=== PATIENT | female | born 1985 | race Caucasian/White ===

== ENCOUNTER 2016-08-11 20:52 | Emergency (ER) | payer OTHER ==
[~2016-08-11] VITALS: Ht 172.7 cm; Wt 93.9 kg
[2016-08-11 21:12] VITALS: BP 130/81
--- NOTE | 2016-08-11 21:34 | NUR ---
PT TAKEN TO BED 1
--- NOTE | 2016-08-11 21:58 | NUR ---
Dr. Navas evaluating patient at bedside.
--- NOTE | 2016-08-11 22:03 | NUR ---
PATIENT PRESENTS TO ED WITH ROBINS, N/V [id number] . PT STATES SHE HAS A HX OF BRAIN TUMOR AND BRAIN HEMMORHAGE 1.5YEARS AGO . DENIES DIARRHEA; SKIN IS PINK/WARM/DRY; AAOX4 WITH EVEN AND STEADY GAIT; LUNGS CLEAR BL; HR EVEN AND REGULAR; PT DENIES ANY FEVER, CP, SOB, OR COUGH AT THIS TIME; PATIENT STATES PAIN OF 6/10 AT THIS TIME; VSS; PATIENT POSITIONED FOR COMFORT; HOB ELEVATED; BEDRAILS UP X2; BED DOWN. ER MD MADE AWARE OF PT STATUS.
[2016-08-11 23:47] VITALS: BP 130/81
--- NOTE | 2016-08-11 23:48 | NUR ---
Patient does not wish to proceed with medical care recommended by DR. WHITLEY. Patient given information related to possible complications, up to and including , which could occur as a result of leaving hospital at this time. Patient verbalizes understanding of risks involved leaving against medical advice. Patient has signed AMA form.
== END 2016-08-11 23:48 | disposition left against medical advice (07) ==
LOC: MED 20:52
DX: R51 Headache (principal); R11.2 Nausea with vomiting, unspecified; R42 Dizziness and giddiness; D18.01 Hemangioma of skin and subcutaneous tissue

== ENCOUNTER 2017-10-15 02:55 | Emergency (ER) | payer OTHER ==
[~2017-10-15] VITALS: Ht 170.2 cm; Wt 81.6 kg
[2017-10-15 03:06] VITALS: BP 157/100
--- NOTE | 2017-10-15 03:13 | NUR ---
PT TAKEN TO BED 4
--- NOTE | 2017-10-15 03:20 | NUR ---
31 Y/O F BIB FAMILY W/C/O DENTAL ABCESS TO R UPPER GUM X TODAY. PT STATES SHE HAS HAD PAIN SAME SPOT FOR 3 DAYS BUT JUST NOTICIED SWELLING. NO S/S OF DISTRESS NOTED. ER MADE AWARE.
[2017-10-15] MEDS ORDERED: BUPIVACAINE-MPF 0.5% 10 ML VIAL INJ ONE (04:05)
[2017-10-15] MEDS ORDERED: oxyCODONE/APAP 5/325 MG 1 TAB TAB PO ONE ×2 (04:05→06:00)
[2017-10-15] MEDS ORDERED: AMOXIL/CLAVULANATE 875/125 MG 1 TAB PO ONE (04:10)
[2017-10-15] MEDS ORDERED: AMOXIL/CLAVULANATE 875/125 MG 1 TAB ONE (04:20)
--- NOTE | 2017-10-15 06:09 | NUR ---
CECILY CAZARES PERFORMING PROCEDURE ON PT AT BEDSIDE.
[2017-10-15 06:26] VITALS: BP 115/86
--- NOTE | 2017-10-15 06:26 | NUR ---
Patient discharged with v/s stable. Written and verbal after care instructions given and explained. Patient alert, oriented and verbalized understanding of instructions. Ambulatory with steady gait. All questions addressed prior to discharge. ID band removed. Patient advised to follow up with PMD. Rx of AUGMENTIN, PERCOCET, AND IBUPROFEN given. Patient educated on indication of medication including possible reaction and side effects. Opportunity to ask questions provided and answered.
== END 2017-10-15 06:26 | disposition home or self-care (01) ==
LOC: MED 02:55
DX: K06.9 Disorder of gingiva and edentulous alveolar ridge, unspecified (principal); K08.9 Disorder of teeth and supporting structures, unspecified; J45.909 Unspecified asthma, uncomplicated; I10 Essential (primary) hypertension; E03.9 Hypothyroidism, unspecified; F17.210 Nicotine dependence, cigarettes, uncomplicated; Z88.5 Allergy status to narcotic agent; Z88.1 Allergy status to other antibiotic agents; Z88.8 Allergy status to other drugs, medicaments and biological substances
CPT/HCPCS: 64450; 99284; J3490